=== PATIENT | male | born 1955 | race Caucasian/White ===

== ENCOUNTER 2017-04-23 23:04 | Observation (INO) | payer MEDICAID ==
[~2017-04-23] VITALS: Ht 172.7 cm; Wt 90.3 kg
[2017-04-23 23:41] LABS: HEMOGLOBIN 16.9 g/dL (13.5-17.5); LYMPHOCYTES 37.2 % (15-50); MCH 33.1 pg (26.0-34.0); MCHC 36.7 g/dL (31.0-37.0); MCV 90.2 fL (80.0-100.0); MEAN PLATELET VOLUME 9.6 fL (7.4-10.4); PLATELET COUNT 109 10x3/uL (130-400); RDW 12.1 % (11.5-14.5); WBC 3.5 10x3/uL (4.8-10.8)
[2017-04-24] LABS: ALBUMIN 3.2 g/dL (3.4-5.0); ALKALINE PHOSPHATASE 72 U/L (46-116); ALT (SGPT) 83 U/L (10-68); CALC OSMOLALITY 268 mosm/kg (275-300); CARBON DIOXIDE 27.3 mmol/L (21.0-32.0); CHLORIDE - SERUM 97 mmol/L (98-107); CREATININE - SERUM 1.2 mg/dL (0.6-1.3); GLUCOSE 139 mg/dL (74-106); POTASSIUM - SERUM 3.3 mmol/L (3.5-5.1); PROTEIN - SERUM 6.5 g/dL (6.4-8.2); SODIUM 134 mmol/L (136-145); UREA NITROGEN 10 mg/dL (7-18); eGFR NON AFRICAN AMERICAN 65 mL/min (90-120)
[2017-04-24 00:06] LABS: CREATINE KINASE 59 UL (21-232); MAGNESIUM - SERUM 1.5 mg/dL (1.8-2.4); PRO BNP 36 pg/mL (0-125); TROPONIN-I < 0.017 ng/mL (0.000-0.060)
[2017-04-24 01:11] LABS: APPEARANCE CLEAR (CLEAR); BILIRUBIN NEGATIVE (NEGATIVE); COLOR DK YELLOW (YELLOW); GLUCOSE NEGATIVE (NEGATIVE); KETONE MODERATE mg/dL (NEGATIVE); NITRITE NEGATIVE (NEGATIVE); PROTEIN NEGATIVE (NEGATIVE); SPECIFIC GRAVITY 1.015 (1.005-1.020); UROBILINOGEN NORMAL (NORMAL)
[2017-04-24 05:40] LABS: BASOPHILS 0.4 % (0-2); EOSINOPHILS 0.4 % (0-7); HEMOGLOBIN 16.4 g/dL (13.5-17.5); LYMPHOCYTES 31.5 % (15-50); MCH 32.7 pg (26.0-34.0); MCHC 35.7 g/dL (31.0-37.0); MCV 91.6 fL (80.0-100.0); MEAN PLATELET VOLUME 9.9 fL (7.4-10.4); MONOCYTES 18.1 % (2-11); NEUTROPHILS 49.6 % (40-80); PLATELET COUNT 100 10x3/uL (130-400); RBC 5.02 10x6/uL (4.20-6.10); RDW 11.7 % (11.5-14.5); WBC 2.8 10x3/uL (4.8-10.8)
[2017-04-24 06:20] LABS: ALKALINE PHOSPHATASE 70 U/L (46-116); ALT (SGPT) 81 U/L (10-68); CALC OSMOLALITY 268 mosm/kg (275-300); CALCIUM 7.7 mg/dL (8.5-10.1); CARBON DIOXIDE 26.2 mmol/L (21.0-32.0); CHLORIDE - SERUM 100 mmol/L (98-107); CKMB 0.4 U/L (0.0-3.6); CREATINE KINASE 58 UL (21-232); GLUCOSE 133 mg/dL (74-106); PROTEIN - SERUM 6.3 g/dL (6.4-8.2); SODIUM 134 mmol/L (136-145); TROPONIN-I < 0.017 ng/mL (0.000-0.060); UREA NITROGEN 9 mg/dL (7-18); eGFR NON AFRICAN AMERICAN 80 mL/min (90-120)
[2017-04-24 06:26] LABS: MAGNESIUM - SERUM 2.5 mg/dL (1.8-2.4); POTASSIUM - SERUM 3.9 mmol/L (3.5-5.1)
[2017-04-24 12:20] LABS: CKMB 0.6 U/L (0.0-3.6); CREATINE KINASE 65 UL (21-232); TROPONIN-I < 0.017 ng/mL (0.000-0.060)
[2017-04-24] MEDS ORDERED: LIPITOR40 MG PO (12:37)
[2017-04-24] MEDS ORDERED: LISINOPRIL2.5 MG PO (12:39)
[2017-04-24] MEDS ORDERED: METOPROLOL TART25 MG PO (12:40)
[2017-04-24] MEDS ORDERED: GLUCOPHAGE500 MG PO (12:40)
[2017-04-24] MEDS ORDERED: FLOMAX0.4 MG PO (12:41)
[2017-04-24] MEDS ORDERED: FLAGYL250 MG PO (12:41)
[2017-04-24] MEDS ORDERED: CIPRO250 MG PO (12:41)
[2017-04-24 12:44] VITALS: BP 113/75
[2017-04-24 15:37] VITALS: BP 118/76
[2017-04-24 17:36] LABS: CKMB 0.7 U/L (0.0-3.6); CREATINE KINASE 65 UL (21-232)
[2017-04-24 17:50] LABS: TROPONIN-I < 0.017 ng/mL (0.000-0.060)
[2017-04-24 19:00] VITALS: BP 100/53
[2017-04-25] VITALS (8 sets, daily range): BP systolic 90–148; BP diastolic 47–90; Ht 172.7 cm; Wt 90.3 kg
[2017-04-25 09:51] LABS: HEMATOCRIT 46.9 % (42.0-54.0); HEMOGLOBIN 16.9 g/dL (13.5-17.5); MCH 33.3 pg (26.0-34.0); MCV 92.3 fL (80.0-100.0); MEAN PLATELET VOLUME 9.6 fL (7.4-10.4); PLATELET COUNT 92 10x3/uL (130-400); RBC 5.08 10x6/uL (4.20-6.10); RDW 11.8 % (11.5-14.5); WBC 2.8 10x3/uL (4.8-10.8)
[2017-04-25 10:09] LABS: ANION GAP 7.9 mmol/L (8-16); CARBON DIOXIDE 29.5 mmol/L (21.0-32.0); CREATININE - SERUM 1.1 mg/dL (0.6-1.3); POTASSIUM - SERUM 3.4 mmol/L (3.5-5.1)
[2017-04-26 01:54] VITALS: BP 102/67
[2017-04-26 04:36] LABS: BASOPHILS 0.5 % (0-2); EOSINOPHILS 0.5 % (0-7); HEMATOCRIT 43.9 % (42.0-54.0); HEMOGLOBIN 16.4 g/dL (13.5-17.5); IMMATURE GRANULOCYTES 0.2 % (0-5); LYMPHOCYTES 44.1 % (15-50); MCH 34.5 pg (26.0-34.0); MCHC 37.4 g/dL (31.0-37.0); MCV 92.2 fL (80.0-100.0); MEAN PLATELET VOLUME 10.2 fL (7.4-10.4); NEUTROPHILS 43.7 % (40-80); PLATELET COUNT 90 10x3/uL (130-400); RBC 4.76 10x6/uL (4.20-6.10)
[2017-04-26 04:47] LABS: CALC OSMOLALITY 273 mosm/kg (275-300); CALCIUM 8.3 mg/dL (8.5-10.1); CARBON DIOXIDE 26.8 mmol/L (21.0-32.0); CHLORIDE - SERUM 103 mmol/L (98-107); CHOL - HDL RATIO 1.6 ratio (2.3-4.9); CHOLESTEROL, TOTAL 72 mg/dL (0-200); GLUCOSE 116 mg/dL (74-106); HDL CHOLESTEROL 46 mg/dL (32-96); LDL CHOLESTEROL 13 mg/dL (0-100); LDL-HDL RATIO 0.3 ratio (1.5-3.5); POTASSIUM - SERUM 3.5 mmol/L (3.5-5.1); SODIUM 137 mmol/L (136-145); TRIGLYCERIDE 66 mg/dL (30-200); UREA NITROGEN 10 mg/dL (7-18); eGFR NON AFRICAN AMERICAN 80 mL/min (90-120)
[2017-04-26 04:52] LABS: WBC 4.4 10x3/uL (4.8-10.8)
[2017-04-26 05:13] LABS: HEMOGLOBIN A1C 6.7 % (4.8-6.0)
[2017-04-26 05:53] VITALS: BP 107/63
[2017-04-26 08:11] VITALS: BP 104/64
[2017-04-26 11:44] VITALS: BP 112/68
[2017-04-26] MEDS ORDERED: TAMIFLU75 MG PO (12:33)
[2017-04-26] MEDS ORDERED: BENTYL 20 MG TA20 MG PO (12:33)
[2017-04-26] MEDS ORDERED: PREDNISONE20 MG PO (12:35)
[2017-04-26 15:24] VITALS: BP 120/62
== END 2017-04-26 16:25 | disposition home or self-care (01) ==
LOC: D.ER 23:04 → D.M2 04-24 11:24 → OBSVTIME 04-24 12:20 → D.M2 04-26 16:25
PROVIDERS: Family Medicine; Internal Medicine Nephrology; Nurse Practitioner Family
DX: K51.511 Left sided colitis with rectal bleeding (principal); J10.1 Influenza due to other identified influenza virus with other respiratory manifestations; I10 Essential (primary) hypertension; E78.5 Hyperlipidemia, unspecified; I25.10 Atherosclerotic heart disease of native coronary artery without angina pectoris; Z95.1 Presence of aortocoronary bypass graft; E11.9 Type 2 diabetes mellitus without complications; D69.6 Thrombocytopenia, unspecified; E87.6 Hypokalemia; L40.9 Psoriasis, unspecified; D72.819 Decreased white blood cell count, unspecified; K57.90 Diverticulosis of intestine, part unspecified, without perforation or abscess without bleeding

== ENCOUNTER → 2017-06-30 09:50 | Outpatient (CLI) | payer MEDICAID ==
[~2017-06-30 09:50] MED LIST: BENTYL 20 MG TA20 MG PO; CIPRO250 MG PO; FLAGYL250 MG PO; FLOMAX0.4 MG PO; GLUCOPHAGE500 MG PO; LIPITOR40 MG PO; LISINOPRIL2.5 MG PO; METOPROLOL TART25 MG PO; PREDNISONE20 MG PO; TAMIFLU75 MG PO
[2017-06-30 10:11] LABS: BASOPHILS 0.4 % (0-2); EOSINOPHILS 0.3 % (0-7); HEMATOCRIT 46.9 % (42.0-54.0); HEMOGLOBIN 16.8 g/dL (13.5-17.5); IMMATURE GRANULOCYTES 0.4 % (0-5); LYMPHOCYTES 16.6 % (15-50); MCH 33.7 pg (26.0-34.0); MCHC 35.8 g/dL (31.0-37.0); MCV 94.2 fL (80.0-100.0); MEAN PLATELET VOLUME 9.5 fL (7.4-10.4); MONOCYTES 4.9 % (2-11); NEUTROPHILS 77.4 % (40-80); RBC 4.98 10x6/uL (4.20-6.10); RDW 12.7 % (11.5-14.5); WBC 7.9 10x3/uL (4.8-10.8)
[2017-06-30 10:14] LABS: PLATELET COUNT 196 10x3/uL (130-400)
[2017-06-30 10:33] LABS: ALBUMIN 3.6 g/dL (3.4-5.0); ANION GAP 11.5 mmol/L (8-16); BILIRUBIN - TOTAL 0.4 mg/dL (0.2-1.3); CALCIUM 9.3 mg/dL (8.5-10.1); CARBON DIOXIDE 27.3 mmol/L (21.0-32.0); CREATININE - SERUM 1.1 mg/dL (0.6-1.3); POTASSIUM - SERUM 3.8 mmol/L (3.5-5.1); PROTEIN - SERUM 7.5 g/dL (6.4-8.2)
[2017-06-30 11:14] LABS: ERYTHROCYTE SEDIMENTATION RATE 3 mm/hr (0-20)
== END | disposition home or self-care (01) ==
LOC: D.LAB 09:50
PROVIDERS: Internal Medicine Gastroenterology
DX: K51.90 Ulcerative colitis, unspecified, without complications (principal); K63.89 Other specified diseases of intestine; R19.7 Diarrhea, unspecified; K92.1 Melena

== ENCOUNTER 2017-11-07 10:45 | Outpatient (CLI) | payer OTHER ==
[~2017-11-07] VITALS: Ht 172.7 cm; Wt 81.8 kg
--- NOTE | ~2017-11-07 | HEMODYNAMI ---
PATIENT:HERMILO DUKES MEDICAL RECORD: [id number] : 51 LOCATION:[facility] ADMISSION DATE: 11/07/17 Generatedon:11/07/201715:27 Patient name: HERMILO DUKES Patient #: [id number] SSN: : 1955 Date of study: 11/07/2017 Page: Of Hemodynamic Procedure Report Patient Data Patient Demographics Procedure consent was obtained First Name: HERMILO Gender: Male Last Name: ERNST : 1955 [facility] Initial: BIANKA Age: 62 year(s) Patient #: [id number] Race: Unknown Additional ID: [id number] Contact details Address: [address] [place] [address] rd State: [place]: [place] Zip code: [address] Past Medical History Allergies Allergen Reaction Date Comments Reported Other allergy 11/07/2017 Triple antiobiotic ointment Admission Admission Data Admission Date: 11/07/2017 Admission Time: 10:45 Height (in.): 5.8 BSA: 0.33 (m2) Height (cm.): 14.73 BMI: 3803.76 (kg/m2) Weight (lbs.): 182 Weight (kg.): 82.55 Lab Results Lab Result Date: 11/07/2017 Lab Result Time: 0:00 Biochemistry Name Units Result Min Max BUN mg/dl 19 --(----)*- 7 18 Creatinine mg/dl 1 --(--*-)-- 0.6 1.3 CBC Name Units Result Min Max Hemoglobin g/dl 15.7 --(--*-)-- 13.5 17.5 Procedure Procedure Types Cath Procedure Diagnostic Procedure LHC LHC w/Coronaries w/Grafts Procedure Description Procedure Date Procedure Date: 11/07/2017 Procedure Start Time: 15:12 Procedure End Time: 15:25 Procedure Staff Name Function Winston Webster MD Performing Physician Hari Junior RT Risk Reduction Counselor Merlene Freeman RT Monitor Jaquelin Fernandez RN Nurse Deysi Robles RT Scrub Procedure Data Cath Procedure Fluoroscopy Diagnostic fluoroscopy Total fluoroscopy Time: 2.9 time: 2.9 min min Diagnostic fluoroscopy Total fluoroscopy dose: 721 dose: 721 mGy mGy Contrast Material Contrast Material Type Amount (ml) Isovue 300 81 Entry Location Entry Primary Successful Side Size Upsize Upsize Entry Closure Succes sful Closure Location (Fr) 1 (Fr) 2 (Fr) Remarks Device Remarks Femoral Right 5 Fr Exoseal artery Diagnostic catheters Device Type Used For End Catheter Placement MULTIPACK JL 4.0 5Fr Left Coronary catheter Angiography DIAGNOSTIC AR MOD 5Fr SVG Angiography Catheter ([id number]) DIAGNOSTIC IM 5Fr SVG Angiography catheter ([id number]) MULTIPACK Pigtail 5 Fr LV Angiography catheter Procedure Complications No complications Procedure Medications Medication Administration Route Dosage Oxygen NC 2 l/min Lidocaine 2% added to field 20 Heparin Flush Bag added to field 2 bags (1000units/500ml NS) 0.9% NaCl I.V. 100 ml/hr Versed I.V. 1 mg Fentanyl I.V. 50 mcg Versed I.V. 1 mg Fentanyl I.V. 50 mcg Versed I.V. 1 mg Hemodynamics Rest BSA: 0.33 (m2) HGB: 15.7 (g/dl) O2 Consumption: Estimated: 39.8 (ml/min) O2 Cons umption indexed: Estimated:120.61 (ml/min/m) Heart Rate: 80 (bpm) Pressure Samples Time Site Value (mmHg) Purpose Heart Use Rate(bpm) 15:19 LV 96/-13,4 EDP 77 15:20 AO 88/45(63) Pullback 76 15:20 LV 97/-10,11 Pullback 76 Gradients Valve Time Site 1 Site 2 Mean SEP/DFP Peak To Heart Use (mmHg) (sec/min) Peak Rate (mmHg) (bpm) Aortic 15:20 LV AO 13 20 9 76 97/-10,11 88/45(63) Calculations Valve P-P Mean Valve Index Valve Source Name Gradient Area Flow (cm2) Aortic 9 13 9 13 Snapshots Pre Cath Intra NCS Post Cath Vital Signs Time Heart Resp SPO2 NIBP Rhythm Pain Sedation Rate (ipm) (%) (mmHg) Status Level (bpm) 15:03:20 83 18 94 110/68(83) NSR 0 (11) 10(A) , No pain 15:07:26 84 14 95 104/67(78) NSR 0 (11) 10(A) , No pain 15:11:28 77 18 97 100/66(80) NSR 0 (11) 10(A) , No pain 15:15:29 75 19 98 106/67(80) NSR 0 (11) 9(A) , No pain 15:19:33 76 18 96 95/65(78) NSR 0 (11) 9(A) , No pain 15:23:32 79 17 98 106/66(83) NSR 0 (11) 10(A) , No pain Medications Time Medication Route Dose Verified Delivered Reason Notes Effe ctiveness by by 15:06:19 Oxygen NC 2 Winston Buffie used for l/min Darin Fernandez RN procedure 15:06:27 Lidocaine 2% added 20ml Winston Winston for local to vial Darin Webster MD anesthetic field 15:06:42 Heparin Flush added 2 Winston Winston used for Bag to bags Darin Webster MD procedure (1000units/500ml field NS) 15:06:50 0.9% NaCl I.V. 100 Winston Buffie Per ml/hr Darin Fernandez RN physician 15:07:01 Versed I.V. 1 mg Winston Buffie for Darin Fernandez RN sedation 15:07:06 Fentanyl I.V. 50 Winston Buffie for mcg Darin Fernandez RN sedation 15:11:35 Versed I.V. 1 mg Winston Buffie for Darin Fernandez RN sedation 15:11:39 Fentanyl I.V. 50 Winston Buffie for mcg Darin Fernandez RN sedation 15:16:56 Versed I.V. 1 mg Winston Buffie for Darin Fernandez RN sedation Procedure Log Time Note 14:46:59 Diagnostic Cath status Elective 14:47:00 Hari Junior RT(R) sent for patient. Start room use. 14:47:02 Time tracking: Regular hours (M-F 7:00 - 5:00) 14:47:08 Plan of Care:Hemodynamics will remain stable., Cardiac rhythm will remain stable., Comfort level will be maintained., Respiratory function will remain adequate., Patient/ family verbilizes understanding of procedure., Procedure tolerated without complication., Recovers from procedure without complications.. 14:50:24 Signed procedure consent form obtained from patient. 14:50:32 H&P Date Dictated: 11/06/2017 Within 30 days and on chart., H&P Addendum completed by physician on day of procedure. (MUST COMPLETE FOR ALL OUTPATIENTS). 14:50:40 Patient Height : 5.8 inches 14:50:45 Patient Weight : 182 lbs 14:52:32 Patient received from Pre/Post Procedure Room to CCL 2 Alert and oriented. Tansferred to table in Supine position. 14:52:36 Warm blankets applied, and rocío hugger turned on for patient comfort. 14:52:36 Correct patient and procedure confirmed by team. 14:52:36 ECG and BP/O2 sat monitors applied to patient. 15:02:19 Vital chart was started 15:02:22 Baseline sample Acquired. 15:02:27 Rhythm: sinus rhythm 15:02:28 Full Disclosure recording started 15:02:29 Pre-procedure instructions explained to patient. 15:02:29 Pre-op teaching completed and patient verbalized understanding. 15:02:33 Family in waiting room. 15:02:35 Patient NPO since Midnight. 15:03:12 Patient allergic to Other allergyTriple antiobiotic ointment 15:03:14 Is the patient allergic to Iodine/contrast media? No. 15:03:19 Is patient on blood thinner?No 15:03:25 Patient diabetic? Yes. 15:03:27 If diabetic: On Metformin? No 15:03:28 ----Pre-sedation anethsthesia assessment.---- 15:03:31 Previous problem with sedation/anesthesia? No ? 15:03:32 Snore? Yes 15:03:34 Sleep apnea? No 15:03:35 Deviated septum? No 15:03:37 Opens mouth fully? Yes 15:03:38 Sticks out tongue? Yes 15:03:40 Airway obstruction? No ? 15:03:42 Dentures? No ? 15:03:45 Pre procedure: right dorsailis pedis pulse 2+ Normal; easily identifiable; not easily obliterated 15:03:49 Patient pain scale 0/10 ?. 15:04:11 IV patent on arrival in left wrist with 0.9% NaCl at 10ml/hr. 15:06:18 Lab Result : BUN 19 mg/dl 15: Lab Result : Hemoglobin 15.7 g/dl 15:: Lab Result : Creatinine 1 mg/dl 15: Oxygen 2 l/min NC was administered by Jaquelin Fernandez RN; used for procedure; 15:: Lab results completed and on chart. 15:: Right groin area was prepped with chlora-prep and draped in sterile fashion :: Alarms reviewed by R. N. : Sharps counted by scrub and verified by R.N. 15:: Physician arrived 15:: Lidocaine 2% 20ml vial added to field was administered by Winston Webster MD; for local anesthetic; --------ALL STOP TIME OUT------ Final Timeout: patient, procedure, and site verified with staff and physician. All members of the team are in agreement. 15:: Right groin site verified by team. 15::33 Physical assessment completed. ASA score P 2 - A patient with mild systemic disease as per Winston Webster MD. 15::37 Sedation plan: IV Moderate Sedation Medication:Versed, Fentanyl 15::42 Heparin Flush Bag (1000units/500ml NS) 2 bags added to field was administered by Winston Webster MD; used for procedure; 15:: 0.9% NaCl 100 ml/hr I.V. was administered by Jaquelin Fernandez RN; Per physician; 15:: Versed 1 mg I.V. was administered by Jaquelin Fernandez RN; for sedation; :: Fentanyl 50 mcg I.V. was administered by Jaquelin Fernandez RN; for sedation; 15::18 Zero performed for pressure channel P1 15:: Use device set Femoral Dx 15:11:28 ACIST Syringe (40326) opened to sterile field. 15:11:29 Bag Decanter (2002S) opened to sterile field. 15:11:29 Medline Cath Pack ([id number]) opened to sterile field. 15:11:30 DIAGNOSTIC WIRE .035 260cm J wire (836235) opened to sterile field. 15:11:31 ACIST Hand Control (75902) opened to sterile field. 15:11:32 ACIST Manifold (82876) opened to sterile field. 15:11:32 DIAGNOSTIC Multipack 5Fr catheter set ([id number]) opened to sterile field. 15:11:34 Tegaderm 4 x 4 (1626W) opened to sterile field. 15:11:35 Versed 1 mg I.V. was administered by Jaquelin Fernandez RN; for sedation; 15:11:35 PERCUTANEOUS ENTRY 19GA needle opened to sterile field. 15:11:37 SHEATH Prelude 5Fr 0.035 ([id number]-4B-63-035) opened to sterile field. 15:11:39 Fentanyl 50 mcg I.V. was administered by Jaquelin Fernandez RN; for sedation; 15:11:40 Procedure started. 15:12:02 Local anesthetic to right femoral artery with Lidocaine 2% by Winston Webster MD.INITIAL ACCESS ONLY 15:12:10 A 5 Fr sheath was inserted into the Right Femoral artery 15:12:26 A MULTIPACK JL 4.0 5Fr catheter was advanced over the wire and used for Left Coronary Angiography. 15:12:31 LCA angiography performed. 15:13:02 Catheter exchanged over wire. 15:14:05 A DIAGNOSTIC AR MOD 5Fr Catheter ([id number]) was advanced over the wire and used for SVG Angiography. 15:14:15 SVG to RCA angiography performed. 15:14:28 SVG to Circ angiography performed. 15:15:54 Zero performed for pressure channel P1 15:16:19 Catheter exchanged over wire. 15:16:38 A DIAGNOSTIC IM 5Fr catheter ([id number]) was advanced over the wire and used for SVG Angiography. 15:16:43 CM to LAD angiography performed. 15:16:56 Versed 1 mg I.V. was administered by Jaquelin Fernandez RN; for sedation; 15:18:21 Catheter exchanged over wire. 15:18:36 A MULTIPACK Pigtail 5 Fr catheter was advanced over the wire and used for LV Angiography. 15:19:27 LV angiography performed. 15:19:28 LV hemodynamics recorded. 15:19:42 LV gram done using MARKS 15:20:04 EF : 45 % 15:20:35 Catheter exchanged over wire. 15:20:47 Sheath removed intact; hemostasis achieved with Exoseal to the Right Femoral artery. 15:20:50 Procedure ended.(Physican Out) 15:20:59 Fluoroscopy time 02.90 minutes. 15:21:04 Flurop Dose total: 721 15:21:04 Fluoroscopy dose: 721 mGy 15:21:42 Contrast amount:Isovue 300 81ml. 15:21:44 Sharps counted by scrub and verified by R.N. 15:21:45 Insertion/operative site no bleeding no hematoma. 15:21:47 Post-op/insertion site Right Femoral artery dressed using a 4 x 4 and Tegaderm. 15:21:51 Post right femoral artery:stable 15:21:52 Post Procedure Pulses reassessed and unchanged 15:21:55 Post procedure: right dorsailis pedis pulse 1+ Palpable, but thready & weak; easily obliterated. 15:21:59 Post procedure rhythm: sinus rhythm 15:22:00 Post procedure instruction explained to patient.Patient verbalizes understanding. 15:22:02 Procedure and supply charges have been captured, reviewed, submitted and are correct. 15:22:18 Procedure type changed to Cath procedure, Diagnostic procedure, LHC, LHC w/Coronaries w/Grafts 15:22:29 EXOSEAL 5Fr (EX500) opened to sterile field. 15:24:59 Procedure Complication : No complications 15:25:02 Vital chart was stopped 15:25:02 See physician's report for complete and final results. 15:25:05 Report given to Pre/Post Procedure Room. 15:25:11 Patient transfered to Pre/Post Procedure Room with Stretcher. 15:25:13 Procedure ended. 15:25:13 Full Disclosure recording stopped 15:25:17 End room use (Document Last) Device Usage Item Name Manufacture Quantity Catalog Number Hospital Part Current M inimal Lot# / Charge Number Stock Stock Serial# Code ACIST Syringe Acist 1 42117 817573 763742 425732 2 0 (27937) [employer] Bag Decanter Microtek 1 271608 67262 842526 5 () Medical Inc. Medline Cath Cardinal 1 [id number] 510404 14215 670726 5 Pack Health ([id number]) DIAGNOSTIC WIRE [facility] [place] 1 398632 880771 372442 034272 3 0 .035 260cm J wire (867727) ACIST Hand Acist 1 02179 405637 414096 222900 5 Control (81568) [employer] ACIST Manifold Acist 1 09538 979387 310161 266300 5 (10554) [employer] DIAGNOSTIC Cardinal 1 [id number] 914641 70488 485353 3 0 Multipack 5Fr Health catheter set ([id number]) Tegaderm 4 x 4 3M 1 1626W 053961 164066 977614 5 (1626W) PERCUTANEOUS Cook Medical 1 [id number] 715620 943005 5 ENTRY 19GA needle SHEATH Prelude Merit 1 [id number]-1T-[id number] 284831 268343 567607 5 5Fr 0.035 Medical (PHX-5Q-07-035) MULTIPACK JL Cardinal 1 [id number] 5 4.0 5Fr Health catheter DIAGNOSTIC AR Cardinal 1 [id number] 590060 825032 721077 1 5 MOD 5Fr Health Catheter ([id number]) DIAGNOSTIC IM Cardinal 1 [id number] 158407 602901 755887 5 5Fr catheter Health ([id number]) MULTIPACK Cardinal 1 439008 5 Pigtail 5 Fr Health catheter EXOSEAL 5Fr Cardinal 1 EX500 876363 669746 395451 1 0 (EX500) Health Signature Audit [place] Stage Time Signature Unsigned Intra-Procedure 11/07/2017 Hari PRYOR(Sae) 3:27:03 PM Signatures Monitor : Merlene Freeman Signature : RT Date : Time : [place] [id number] [place] [address]
[2017-11-07 11:32] LABS: BASOPHILS 0.4 % (0-2); EOSINOPHILS 2.2 % (0-7); HEMATOCRIT 43.6 % (42.0-54.0); HEMOGLOBIN 15.7 g/dL (13.5-17.5); IMMATURE GRANULOCYTES 0.3 % (0-5); MCH 33.1 pg (26.0-34.0); MCV 91.8 fL (80.0-100.0); NEUTROPHILS 61.1 % (40-80); RBC 4.75 10x6/uL (4.20-6.10); RDW 11.6 % (11.5-14.5); WBC 7.8 10x3/uL (4.8-10.8)
[2017-11-07] MEDS ORDERED: BAYER CHEWABLE81 MG PO (11:32)
[2017-11-07] MEDS ORDERED: APRISO0.375 GM PO (11:33)
[2017-11-07 11:34] VITALS: BP 131/80; Ht 172.7 cm; Wt 81.8 kg
[2017-11-07 11:38] LABS: PLATELET COUNT 127 10x3/uL (130-400)
[2017-11-07 11:40] LABS: CALC OSMOLALITY 278 mosm/kg (275-300); CALCIUM 8.8 mg/dL (8.5-10.1); CARBON DIOXIDE 28.3 mmol/L (21.0-32.0); CHLORIDE - SERUM 102 mmol/L (98-107); GLUCOSE 119 mg/dL (74-106); POTASSIUM - SERUM 3.6 mmol/L (3.5-5.1); SODIUM 138 mmol/L (136-145); UREA NITROGEN 19 mg/dL (7-18); eGFR NON AFRICAN AMERICAN 80 mL/min (90-120)
== END 2017-11-07 17:40 | disposition home or self-care (01) ==
LOC: D.CATH 10:45
PROVIDERS: Internal Medicine Cardiovascular Disease
DX: I25.10 Atherosclerotic heart disease of native coronary artery without angina pectoris (principal); Z95.1 Presence of aortocoronary bypass graft; Z01.812 Encounter for preprocedural laboratory examination